=== PATIENT | female | born 1975 | race Caucasian/White ===

== ENCOUNTER → 2017-01-13 | Day surgery (SDC) | payer OTHER ==
[~2017-01-13] MED LIST: ACETAMINOPHEN 1000 MG/100 ML VIAL IV ONE; APREPITANT 40 MG CAP ONE; AUGM875T PO; BUPIVACAINE/EPINEPHRINE 0.5% 50 ML VIAL INFIL ONE; KETOROLAC TROMETHAMINE 30 MG/ML (IVP) VIAL IV PUSH ONE; LACTATED RINGER'S 1000 ML INJ 1,000 ML ONE; MIDAZOLAM HCL 2 MG/2 ML VIAL ONE; MORPHINE SULFATE 4 MG/ML INJ ONE; ONDA1TAB16 PO; ONDANSETRON HCL 4 MG/2 ML VIAL IV PUSH ONE; PERC5TAB12 PO; PROPOFOL 200 MG/20 ML AMP IV ONE; ceFAZolin INJ 1,000 MG VIAL ONE; metroNIDAZOLE 500 MG INJ 100 ML IV ONE
--- NOTE | 2017-01-13 09:20 | TN ---
cc: TAYLOR HAGER MD [facility] [place], LUZ ELENA HORTON M.D. DATE OF SURGERY: 01/13/2017 PREOPERATIVE DIAGNOSIS 1. Biliary colic. 2. Gallstones. POSTOPERATIVE DIAGNOSIS 1. Biliary colic. 2. Gallstones. PROCEDURE Laparoscopic cholecystectomy. ANESTHESIA General. SURGEON Dr. Horton INDICATION This is a pleasant 41-year-old female who had biliary colic type symptoms. Imaging confirmed gallstones. Plans were made for above. DETAILS OF PROCEDURE The patient was taken to the operating room and placed in the supine position. After endotracheal anesthesia her abdomen is prepped with Betadine solution. We make an incision at the umbilicus. A Veress needle is inserted. A saline load test is performed. The abdomen is insufflated with 15 mmHg. The camera is introduced. Three other working ports are placed 5 mm below the xyphoid, 5 mm in between the two previously placed ports. The gallbladder is grasped superiorly and laterally. We identify the cystic duct and cystic artery which are both doubly ligated and transected. The gallbladder is then teased off the gallbladder bed, placed in an EndoCatch and pulled out through the umbilical incision. We check our dissection sites. There is excellent hemostasis without biliary leakage. The liver is smooth. The peritoneal surfaces are smooth. She has a generous omentum. I see no other pathology. The CO2 is removed. Trocars are removed. The fascial layer at the umbilicus is closed with 0 Vicryl and skin is closed with 4-0 Vicryl. Steri-Strips are applied. Sterile bandage applied. The patient tolerated the procedure well and had no immediate post-op complications at the time of this dictation. Luz Elena Horton MD JDB/WAI /8:54 AM /9:04 AM
== END | disposition home or self-care (01) ==
LOC: ESDC 06:47
PROVIDERS: ATTEND Surgery
DX: K80.10 Calculus of gallbladder with chronic cholecystitis without obstruction (principal)
CPT/HCPCS: 00790; 47562; 88304; J0131; J0690; J1885; J2250; J2270; J2405; J3010; J7120; J8501

== ENCOUNTER 2017-01-26 16:27 | Emergency (ER) | payer OTHER ==
[~2017-01-26] VITALS: Ht 157.5 cm; Wt 78.2 kg
[~2017-01-26 16:27] MED LIST changes: -ACETAMINOPHEN 1000 MG/100 ML VIAL IV ONE; -APREPITANT 40 MG CAP ONE; -BUPIVACAINE/EPINEPHRINE 0.5% 50 ML VIAL INFIL ONE; -KETOROLAC TROMETHAMINE 30 MG/ML (IVP) VIAL IV PUSH ONE; -LACTATED RINGER'S 1000 ML INJ 1,000 ML ONE; -MIDAZOLAM HCL 2 MG/2 ML VIAL ONE; -MORPHINE SULFATE 4 MG/ML INJ ONE; -ONDANSETRON HCL 4 MG/2 ML VIAL IV PUSH ONE; -PROPOFOL 200 MG/20 ML AMP IV ONE; -ceFAZolin INJ 1,000 MG VIAL ONE; -metroNIDAZOLE 500 MG INJ 100 ML IV ONE
[2017-01-26] MEDS ORDERED: SODIUM CHLORIDE 0.9% FLUSH 10 ML FLUSH IV FLUSH PRN (16:45)
[2017-01-26] MEDS ORDERED: MORPHINE SULFATE 4 MG/ML INJ IV PUSH ONE (16:45)
[2017-01-26] MEDS ORDERED: ONDANSETRON HCL 4 MG/2 ML VIAL IVP ONE (16:45)
[2017-01-26 16:47] VITALS: BP 136/60; PULSE 78; RESP 16; TEMP 98.1; O2SAT 97
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
[2017-01-26] MEDS ORDERED: HYDR-3533 PO (16:58)
[2017-01-26] MEDS ORDERED: ZANT150T2 PO (16:58)
[2017-01-26] MEDS ORDERED: GAS-CAP3 PO (16:58)
[2017-01-26 17:32] VITALS: O2SAT 96
[2017-01-26 17:33] LABS: AUTOMATED NEUTROPHIL # 8.3 TH/MM3 (1.8-7.7); BASOPHIL # 0.1 TH/MM3 (0-0.2); BASOPHIL % 0.5 % (0.0-2.0); EOSINOPHIL # 0.1 TH/MM3 (0-0.4); EOSINOPHIL % 1.1 % (0.0-4.0); HEMATOCRIT 35.2 % (35.0-46.0); HEMO FLAGS DIFF FINAL; LYMPH % 19.7 % (9.0-44.0); LYMPHOCYTE # 2.3 TH/MM3 (1.0-4.8); MEAN CELL VOLUME 85.3 FL (80.0-100.0); MEAN CORPUSCULAR HEMOGLOBIN 29.3 PG (27.0-34.0); MEAN CORPUSCULAR HGB CONC 34.4 % (32.0-36.0); MONO % 8.1 % (0.0-8.0); NEUT % 70.6 % (16.0-70.0); PLATELET COUNT 389 TH/MM3 (150-450); RED BLOOD COUNT 4.13 MIL/MM3 (4.00-5.30); RED CELL DISTRIBUTION WIDTH 12.9 % (11.6-17.2); WHITE BLOOD COUNT 11.8 TH/MM3 (4.0-11.0)
[2017-01-26 17:41] LABS: CHLORIDE 106 MEQ/L (98-107); POTASSIUM 3.8 MEQ/L (3.5-5.1); SODIUM (NA) 140 MEQ/L (136-145)
[2017-01-26 17:46] LABS: ANION GAP 7 MEQ/L (5-15); BICARBONATE 26.8 MEQ/L (21.0-32.0); BLOOD UREA NITROGEN 11 MG/DL (7-18)
[2017-01-26 17:47] LABS: APTT (PATIENT) 27.3 SEC (24.3-30.1); PROTHROMBIN TIME - PATIENT 10.5 SEC (9.8-11.6)
[2017-01-26 17:48] LABS: ALT (GPT) 28 U/L (10-53); AST (GOT) 15 U/L (15-37); GLOMERULAR FILTRATION RATE 78 ML/MIN (>89)
[2017-01-26 17:50] LABS: TOTAL BILIRUBIN ADULT 0.3 MG/DL (0.2-1.0)
[2017-01-26 17:51] LABS: ALKALINE PHOSPHATASE 80 U/L (45-117)
[2017-01-26] MEDS ORDERED: IOHEXOL 350 MG/ML 10 ML VIAL (for RAD DIAG) IV ONE (18:13)
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
[2017-01-26 19:06] VITALS: BP 120/69; PULSE 60; RESP 16; O2SAT 98
[2017-01-26] MEDS ORDERED: TRAM50TA PO (19:27)
== END 2017-01-26 19:48 | disposition home or self-care (01) ==
LOC: PHED 16:27
DX: S30.1XXA Contusion of abdominal wall, initial encounter (principal); S39.012A Strain of muscle, fascia and tendon of lower back, initial encounter; V49.49XA Driver injured in collision with other motor vehicles in traffic accident, initial encounter; Y93.89 Activity, other specified; Y92.411 Interstate highway as the place of occurrence of the external cause; D25.9 Leiomyoma of uterus, unspecified; N20.0 Calculus of kidney; Z90.49 Acquired absence of other specified parts of digestive tract; K21.9 Gastro-esophageal reflux disease without esophagitis
CPT/HCPCS: 72125; 72131; 74177; 80053; 83690; 85025; 85610; 85730; 96374; 96375; 99285; J2270; J2405; Q9967

== ENCOUNTER → 2017-05-17 | Outpatient (CLI) | payer OTHER ==
[~2017-05-17] MED LIST changes: -AUGM875T PO; +GAS-CAP3 PO; -ONDA1TAB16 PO; -PERC5TAB12 PO; +TRAM50TA PO; +ZANT150T2 PO
[2017-05-17 14:02] LABS: BASOPHIL # 0.1 TH/MM3 (0-0.2); BASOPHIL % 0.7 % (0.0-2.0); EOSINOPHIL # 0.2 TH/MM3 (0-0.4); EOSINOPHIL % 1.9 % (0.0-4.0); HEMATOCRIT 37.5 % (35.0-46.0); HEMO FLAGS DIFF FINAL; MEAN CELL VOLUME 87.6 FL (80.0-100.0); MEAN CORPUSCULAR HEMOGLOBIN 28.9 PG (27.0-34.0); MONO % 10.9 % (0.0-8.0); NEUT % 61.5 % (16.0-70.0); PLATELET COUNT 376 TH/MM3 (150-450); RED BLOOD COUNT 4.28 MIL/MM3 (4.00-5.30); WHITE BLOOD COUNT 8.1 TH/MM3 (4.0-11.0)
[2017-05-17 14:08] LABS: BLOOD, URINE MOD (NEG); GLUCOSE,URINE NEG (NEG); KETONE, URINE NEG (NEG); NITRITE,URINE NEG (NEG); SQUAMOUS EPITHELIAL CELL URINE <1 /hpf (0-5); URINE COLOR LIGHT-YELLOW (YELLW/STRAW)
[2017-05-17 14:10] LABS: COMMENT (UR) CULT NOT INDICATED; CULTURE IF INDICATED CULT NOT INDICATED
[2017-05-17 14:31] LABS: BETA HCG QUANT LESS THAN 1 MIU/ML (0-5)
--- NOTE | 2017-05-18 14:26 | EKG ---
Date Performed: 05/17/2017 Time Performed: 13:23:49 PTAGE: 41 years EKG: SINUS BRADYCARDIA LOW QRS VOLTAGE IN PRECORDIAL LEADS BORDERLINE ECG NO PREVIOUS TRACING DOCTOR: Daniella Platt Interpretating Date/Time 05/18/2017 14:23:26
== END ==
LOC: CPRE 13:02
PROVIDERS: ATTEND Obstetrics & Gynecology
DX: Z01.810 Encounter for preprocedural cardiovascular examination (principal); Z01.812 Encounter for preprocedural laboratory examination; D25.9 Leiomyoma of uterus, unspecified; N92.0 Excessive and frequent menstruation with regular cycle; N94.6 Dysmenorrhea, unspecified; R94.31 Abnormal electrocardiogram [ECG] [EKG]
CPT/HCPCS: 36415; 81001; 84702; 85025; 93005

== ENCOUNTER 2017-05-19 05:32 | Observation (INO) | payer OTHER ==
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
[~2017-05-19] VITALS: Ht 157.5 cm; Wt 80.7 kg
[~2017-05-19 05:32] MED LIST changes: -TRAM50TA PO
[2017-05-19] MEDS ORDERED: POVIDONE IODINE 5% (ANTISEPSIS KIT) 4 APPLICATIONS EACH NARE PRN (06:30)
[2017-05-19] MEDS ORDERED: SODIUM CHLORID 0.9% 500 ML IV PRN (06:30)
[2017-05-19] MEDS ORDERED: METOPROLOL TARTRATE 25 MG TAB PO PRN (06:30)
[2017-05-19] MEDS ORDERED: ACETAMINOPHEN 1000 MG/100 ML 100 ML IV SCH (06:30)
[2017-05-19] MEDS ORDERED: LACTATED RINGER'S 1000 ML IV PRN (06:30)
[2017-05-19] MEDS ORDERED: ceFAZolin 1,000 MG/NS 100 ML IV SCH ×2 (06:30)
[2017-05-19] MEDS ORDERED: CHLORHEXIDINE GLUCONATE 2 % 1 PACK (2 CLOTHS) TOPICAL PRN (06:30)
[2017-05-19] MEDS ORDERED: ROPIVACAINE 0.5% PF INJ 30 ML VIAL ONE ×2 (06:54→07:01)
[2017-05-19] MEDS ORDERED: DEXAMETHASONE SOD PHOS PF 10 MG/ML VIAL ONE (06:59)
[2017-05-19] MEDS ORDERED: D5-1/2 NS + KCL 20 MEQ INJ 1,000 ML IV SCH (09:40)
[2017-05-19] MEDS ORDERED: ONDANSETRON HCL 4 MG/2 ML VIAL IV PUSH PRN (09:45)
[2017-05-19] MEDS ORDERED: diphenhydrAMINE HCL 25 MG CAP PO PRN (09:45)
[2017-05-19] MEDS ORDERED: ZOLPIDEM TARTRATE 5 MG TAB PO PRN (09:45)
[2017-05-19] MEDS ORDERED: PROMETHAZINE INJ 25 MG/ML VIAL IM PRN (09:45)
[2017-05-19] MEDS ORDERED: HYDROmorphone HCL PF 1 MG/ML VIAL IV PUSH PRN (09:45)
[2017-05-19] MEDS ORDERED: DOCUSATE SODIUM 100 MG CAP PO SCH (11:00)
[2017-05-19] MEDS ORDERED: DO NOT ADM ANY ANTICOAGULANT DRUGS PRN (11:00)
[2017-05-19] MEDS ORDERED: ONDANSETRON INJ 8 MG in DEXTROSE 5% IN WATER INJ 50 ML IV PUSH PRN ×2 (11:00)
[2017-05-19 11:15] VITALS: BP 98/66; PULSE 59; RESP 15; TEMP 97.7; O2SAT 96
[2017-05-19 14:45] LABS: HEMATOCRIT 32.4 % (35.0-46.0); REVIEW FLAG FINAL
[2017-05-19] MEDS ORDERED: ACETAMINOPHEN 1000 MG/100 ML VIAL IV SCH (15:00)
[2017-05-19 15:45] VITALS: BP 137/80; PULSE 112; RESP 20; TEMP 97.7; O2SAT 99
[2017-05-19] MEDS ORDERED: KETOROLAC TROMETHAMINE 30 MG/ML (IVP) VIAL IVP SCH (16:00)
--- NOTE | 2017-05-19 21:30 | MP ---
cc: SHARMILA FORRESTER DATE OF SURGERY 05/19/2017 PREOPERATIVE DIAGNOSIS Menorrhagia, dysmenorrhea, uterine fibroids, possible ovarian cysts. Elevated CA-125. POSTOPERATIVE DIAGNOSIS Menorrhagia, dysmenorrhea, uterine fibroids, possible ovarian cysts. Elevated CA-125. PROCEDURE Laparoscopy followed by LASH procedure, right salpingo-oophorectomy and left salpingectomy. ANESTHESIA General ET SURGEON Sharmila Forrester MD FACILITIES ADMINISTRATOR MICAELA Stoll ESTIMATED BLOOD LOSS 700 cc. FLUIDS 2.2 liters crystalloid. OBJECTIVE FINDINGS Following induction of adequate general endotracheal anesthesia, the patient was prepped and draped supine on the operating table dorsolithotomy position in usual sterile fashion with the bladder being drained via Santos catheterization. The abdomen was opened through a 3 cm curving infraumbilical incision using knife to cut down through skin to the fascia. The fascia opened transversely, stripped from the muscles. Rectus muscle split in the midline and peritoneum opened bluntly. Palpation was normal. GelPort was placed. Laparoscope inserted. A 5 port placed in the left lower quadrant Airseal port right lower quadrant. The uterus is about 14 weeks size, multiple fibroids. Tubes were normal. The left ovary was normal. The right had a couple cystic suspicious areas, each about 1-2 centimeters. The liver edge was normal. Working first on the left, harmonic scalpel was used take the right utero-ovarian pedicle, right round ligament, right broad ligament and the right side of the bladder flap, and same on the left. Harmonic scalpel was now used to amputate the fundus from the cervix. The fundus placed in the bag, the bag exteriorized and hand morcellated to ensure no spillage. When complete both tubes were taken with harmonic scalpel and then the right ovary with harmonic scalpel and extracted intact through the GelPort. Irrigation performed. No bleeding was evident. Ureters inspected for good peristalsis. Low pressure with no bleeding, so the operative site was coated with Evicel and the GelPort was now removed and the peritoneum sutured with running 2-0 Vicryl. The fascia with a running locking stitch of 0 Vicryl corner to midline and tied. The subcu closed with running 3-0 Vicryl and skin with a running 3-0 Monocryl. The scope was now reinserted through the lower ports and used to inspect the GelPort site which was well closed. No entrapment. Pelvis inspected. There was no bleeding. Scope was removed, gas allowed to escape and the small wounds closed with 3-0 Monocryl. Dermabond applied. All counts were correct and the patient was awake and taken to the recovery room in good condition. MD DAT Watkins/MARIA C /3:35 PM /8:57 PM MTDPerico
== END 2017-05-19 17:53 | disposition home or self-care (01) ==
LOC: HSDC 05:32 → HSDI 09:41 → H1EA 11:15
PROVIDERS: ADMIT Obstetrics & Gynecology; ATTEND Obstetrics & Gynecology
DX: N92.0 Excessive and frequent menstruation with regular cycle (principal); N94.6 Dysmenorrhea, unspecified; R97.1 Elevated cancer antigen 125 [CA 125]; D25.9 Leiomyoma of uterus, unspecified; N71.1 Chronic inflammatory disease of uterus; N83.8 Other noninflammatory disorders of ovary, fallopian tube and broad ligament; D27.0 Benign neoplasm of right ovary
CPT/HCPCS: 00840; 58544; 85014; 85018; 86850; 86900; 86901; 88307; 96365; 96366; 96375; G0378; J0131; J0690; J1100; J1885; J2795; J3480; J7120